=== PATIENT | male | born 1950 | race Caucasian/White ===

== ENCOUNTER → 2020-01-08 | Day surgery (SDC) | payer MEDICARE ==
[~2020-01-08] MED LIST: Dexamethasone 4 MG/ML 5 ML MDV IV ONE; Glycopyrrolate 0.2 MG/ML SDV IVPUSH ONE; HYDROmorphone 1 MG/ML Syringe IV ONE; Ketorolac 30 MG/ML SDV IVPUSH ONE; Lactated Ringers 1,000 ML IV SCH; Lidocaine 1% with EPINEPHrine 1:100,000 20 ML MDV ONE; Midazolam 1 MG/ML 2 ML SDV IV ONE; Neostigmine Methylsulfate 1 MG/ML 5 ML Syringe IV ONE; Ondansetron 4 MG/2 ML SDV IV ONE; Phenylephrine 1% 10 MG/ML SDV IV ONE; Propofol 200 MG/20 ML SDV IV ONE; Rocuronium 50 MG/5 ML Vial IVPUSH ONE; ceFAZolin 1 GM Vial IVPUSH STA; fentaNYL 100 MCG/2 ML SDV IV ONE
--- NOTE | 2020-01-08 13:29 | OR ---
DATE OF OPERATION: 01/08/2020 PREOPERATIVE DIAGNOSIS: RIGHT INGUINAL HERNIA. POSTOPERATIVE DIAGNOSIS: RIGHT INGUINAL HERNIA (INDIRECT). SURGEON: Haroldo Kirkland MD PROCEDURE: OPEN REPAIR OF DIRECT RIGHT INGUINAL HERNIA WITH MESH. ANESTHESIA: General. ESTIMATED BLOOD LOSS: Minimum. SPECIMEN: Hernia sac. INDICATIONS: This 69-year-old male has a physical examination compatible with right inguinal hernia. He is moderately symptomatic. DESCRIPTION OF PROCEDURE: After adequate preparation, a right lower quadrant incision was made over the groin and carried down through the external oblique to open up the inguinal canal. The ilioinguinal and iliohypogastric nerves were identified. These were taken laterally and amputated as far laterally as possible. The hernia sac and cord were elevated out of the inguinal canal and the sac dissected free from the cord down to the deep inguinal ring. A pursestring of 0 Prolene suture was used to close the sac and the distal end was then amputated. A piece of precut Prolene mesh was then used to strengthen the inguinal floor. This was sewn in a running fashion along the inguinal ligament and in an interrupted fashion along the rectus sheath. The tails of the keyhole were placed around the cord and then sewn in place together. 1% xylocaine was used to infiltrate the inguinal ligament and rectus muscle. The external oblique was then closed over the cord. Again, You's layer was closed and the skin with Monocryl. BPB/MODL /[id number]
== END ==
LOC: CC.SDS 07:20
PROVIDERS: ATTEND Surgery
DX: K40.90 Unilateral inguinal hernia, without obstruction or gangrene, not specified as recurrent (principal); I10 Essential (primary) hypertension; Z11.59 Encounter for screening for other viral diseases; Z87.891 Personal history of nicotine dependence
CPT/HCPCS: 00830; 49505; 88302; J0690; J1100; J1170; J1885; J2250; J2370; J2405; J2704; J2710; J3010; J3490; J7120; U0002